=== PATIENT | female | born 1950 | race Caucasian/White ===

== ENCOUNTER 2016-11-21 12:11 | Emergency (ER) | payer OTHER ==
[~2016-11-21] VITALS: Ht 162.6 cm; Wt 124.9 kg
[~2016-11-21 12:11] MED LIST: ANALGESIC325 M1 PO; ASPIRIN EC325 MG PO; ASPIRIN325 MG PO; AUGMENTIN875 MG PO; CALTRATE 6001 TABLET PO; CYMBALTA60 MG PO; DOCUSATE SODIU100 MG PO; ECOTRIN325 MG PO; ERGOCALCIF50000 UNIT PO; FUROSEMIDE20 MG PO; K-DUR20 MEQ PO; KEFLEX500 MG PO; KETOCONAZOLE60 GM TP; KLONOPIN0.5 M1 PO; KLONOPIN1 MG PO; LASIX40 MG PO; LYRICA50 MG PO; MAXIDE PO; MAXZIDE 37.5 M1 EACH; NICOTINE PATCH1 EAC2 TD; OXYCODONE HCL5 MG PO; PERCOCET 10/1 TABLET PO; PERCOCET 7.5-31 EACH PO; PERCOCET 7.51 TABLET PO; PROZAC40 MG PO; RISPERDAL1 M1 PO; RISPERDAL1 MG PO; SANTYL30 GM TP; SYNTHROID200 MCG PO; SYNTHROID25 MCG; SYNTHROID75 MCG PO; XANAX0.5 MG PO
[2016-11-21 13:16] LABS: ADD MIUA? YES; BILIRUBIN NEGATIVE; BLOOD SMALL; COLOR YELLOW ((YELLOW)); GLUCOSE (STRIP) NEGATIVE; KETONES NEGATIVE; LEUKOCYTES LARGE; NITRITE POSITIVE; PROTEIN (STRIP) NEGATIVE; SPECIFIC GRAVITY 1.011 (1.000-1.030); UROBILINOGEN 0.2 MG/DL (0.2-1.0)
[2016-11-21 13:34] LABS: EOSINOPHIL COUNT 0.2 K/uL (0-0.3); HEMATOCRIT 32.8 % (36.0-46.0); IMMATURE GRANULOCYTE (%) 0.2 % (0.0-0.7); INSTRUMENT ABS NEUTROPHIL CT 2.1 K/uL; LYMPHOCYTE COUNT 2.2 K/uL (1.0-2.8); MCH 30.5 PG (29.0-34.0); MCHC 30.2 G/DL (30.0-36.0); MCV 100.9 FL (83-99); MEAN PLAT.VOLUME 9.7 uM^3 (9.5-12.4); MONOCYTE (%) 9.7 % (3-12); MONOCYTE COUNT 0.5 K/uL (0-0.8); NEUTROPHIL (%) 41.4 % (45-76); NEUTROPHIL COUNT 2.1 K/uL (1.8-6.4); PLATELET COUNT 188 K/uL (156-360); RBC DIS.WIDTH-CV 14.9 % (11.8-14.6); RBC DIS.WIDTH-SD 55.9 % (39-53); RED BLOOD COUNT 3.25 M/uL (3.80-5.20); WHITE BLOOD COUNT 5.1 K/uL (4.1-10.2)
[2016-11-21 13:43] LABS: CHLORIDE 108 mEq/L (99-109); POTASSIUM 5.2 mEq/L (3.7-5.4); SODIUM 140 mEq/L (136-147)
[2016-11-21 13:45] LABS: GLUCOSE 87 mg/dL (70-99)
[2016-11-21 13:46] LABS: ANION GAP 8 MEQ/L (2-14)
[2016-11-21 13:47] LABS: TOTAL BILIRUBIN 0.3 mg/dL (0.0-1.0)
[2016-11-21 13:48] LABS: ALKALINE PHOSPHATASE 68 IU/L (3-129)
[2016-11-21 13:49] LABS: GFR ESTIMATE (CALCULATED) 32 mL/min/
[2016-11-21 13:50] LABS: UREA NITROGEN (BUN) 26 mg/dL (9-23)
[2016-11-21 13:52] LABS: LIPASE 27 U/L (1.0-51.0)
[2016-11-21 13:56] LABS: BACTERIA 3+ /HPF; EPITHELIAL CELLS NONE SEEN /HPF; MUCUS NONE SEEN /LPF; RED BLOOD CELLS 20-30 /HPF (0-5); UCUL ADDED? YES; WHITE BLOOD CELLS TNTC /HPF (0-5)
[2016-11-21] MEDS ORDERED: BACTRIM,SEPT1 TABLET PO (14:50)
[2016-11-21 16:36] VITALS: BP 113/69
== END 2016-11-21 16:38 ==
LOC: EME 12:11
PROVIDERS: Emergency Medicine
DX: N39.0 Urinary tract infection, site not specified (principal); R10.33 Periumbilical pain; K59.00 Constipation, unspecified; I10 Essential (primary) hypertension; G89.29 Other chronic pain; F32.9 Major depressive disorder, single episode, unspecified; J44.9 Chronic obstructive pulmonary disease, unspecified; M79.7 Fibromyalgia; E03.9 Hypothyroidism, unspecified; M17.0 Bilateral primary osteoarthritis of knee; F41.0 Panic disorder [episodic paroxysmal anxiety]; Z90.710 Acquired absence of both cervix and uterus; Z90.49 Acquired absence of other specified parts of digestive tract; F17.200 Nicotine dependence, unspecified, uncomplicated
CPT/HCPCS: 74176; 80053; 81003; 83690; 85025; 87077; 87086; 87186; 87493; 99281; 99285

== ENCOUNTER 2017-11-06 07:19 | Emergency (ER) | payer OTHER ==
[~2017-11-06] VITALS: Ht 162.6 cm; Wt 131.6 kg
[~2017-11-06 07:19] MED LIST changes: +BACTRIM,SEPT1 TABLET PO
[2017-11-06 07:49] LABS: BASOPHIL (%) 0.3 % (0-1); EOSINOPHIL (%) 1.6 % (0-5); EOSINOPHIL COUNT 0.1 K/uL (0-0.3); HEMATOCRIT 36.7 % (36.0-46.0); HEMOGLOBIN 11.5 G/DL (11.9-15.5); IMMATURE GRANULOCYTE (%) 0.1 % (0.0-0.7); LYMPHOCYTE (%) 33.9 % (15-42); LYMPHOCYTE COUNT 2.3 K/uL (1.0-2.8); MCH 32.7 PG (29.0-34.0); MCHC 31.3 G/DL (30.0-36.0); MCV 104.3 FL (83-99); MONOCYTE (%) 10.3 % (3-12); MONOCYTE COUNT 0.7 K/uL (0-0.8); NEUTROPHIL (%) 53.8 % (45-76); NEUTROPHIL COUNT 3.7 K/uL (1.8-6.4); PLATELET COUNT 194 K/uL (156-360); RBC DIS.WIDTH-CV 14.5 % (11.8-14.6); RBC DIS.WIDTH-SD 56.2 % (39-53); RED BLOOD COUNT 3.52 M/uL (3.80-5.20); WHITE BLOOD COUNT 6.9 K/uL (4.1-10.2)
[2017-11-06 07:55] LABS: INTER. NORMALIZED RATIO 2.8
[2017-11-06 07:57] LABS: PTT 38.2 SEC (25-37)
[2017-11-06 08:03] LABS: CHLORIDE 105 mEq/L (99-109); POTASSIUM 4.7 mEq/L (3.7-5.4); SODIUM 141 mEq/L (136-147)
[2017-11-06 08:07] LABS: GLUCOSE 91 mg/dL (70-99)
[2017-11-06 08:09] LABS: CREATININE 1.5 mg/dL (0.6-1.3); GFR ESTIMATE (CALCULATED) 37 mL/min/
[2017-11-06 08:10] LABS: TROP-I INTERPRETATION NEGATIVE; TROPONIN-I < 0.01 ng/mL (0.0-0.30); UREA NITROGEN (BUN) 18 mg/dL (9-23)
[2017-11-06 10:58] LABS: TROP-I INTERPRETATION NEGATIVE; TROPONIN-I < 0.01 ng/mL (0.0-0.30)
[2017-11-06] MEDS ORDERED: TYLENOL WITH C1 EACH PO (11:36)
[2017-11-06 14:56] VITALS: BP 110/85
== END 2017-11-06 14:57 ==
LOC: EME 07:19
PROVIDERS: Emergency Medicine
DX: R07.89 Other chest pain (principal); Z86.79 Personal history of other diseases of the circulatory system; R00.0 Tachycardia, unspecified; I49.1 Atrial premature depolarization; I13.0 Hypertensive heart and chronic kidney disease with heart failure and stage 1 through stage 4 chronic kidney disease, or unspecified chronic kidney disease; N18.9 Chronic kidney disease, unspecified; I50.9 Heart failure, unspecified; J44.9 Chronic obstructive pulmonary disease, unspecified; E78.5 Hyperlipidemia, unspecified; M79.7 Fibromyalgia; M06.9 Rheumatoid arthritis, unspecified; E03.9 Hypothyroidism, unspecified; F31.9 Bipolar disorder, unspecified; F41.9 Anxiety disorder, unspecified; F32.9 Major depressive disorder, single episode, unspecified; F41.0 Panic disorder [episodic paroxysmal anxiety]; F17.200 Nicotine dependence, unspecified, uncomplicated; Z85.9 Personal history of malignant neoplasm, unspecified; Z86.73 Personal history of transient ischemic attack (TIA), and cerebral infarction without residual deficits; Z90.49 Acquired absence of other specified parts of digestive tract; Z90.710 Acquired absence of both cervix and uterus; Z91.013 Allergy to seafood; Z88.7 Allergy status to serum and vaccine; Z91.041 Radiographic dye allergy status; Z88.8 Allergy status to other drugs, medicaments and biological substances
CPT/HCPCS: 71045; 80048; 84484; 85025; 85610; 85730; 93005; 99281; 99285; J1885